=== PATIENT | male | born 1985 | race Caucasian/White ===

== ENCOUNTER 2016-07-26 19:43 | Emergency (ER) | payer BC ==
[2016-07-26 20:06] VITALS: TEMP 97.9; O2SAT 96
[2016-07-26] MEDS ORDERED: IPRATROPIUM/ALBUTEROL 3 ML DEYVIAL ONE (22:37)
[2016-07-26] MEDS ORDERED: IPRATROPIUM/ALBUTEROL 3 ML DEYVIAL IH ONE (22:45)
--- NOTE | 2016-07-26 22:50 | EDPHY ---
H & P Stated Complaint: chest pain for 1 week Time Seen by Provider: 07/26/16 22:43 HPI/ROS: CHIEF COMPLAINT: Chest pressure and tightness HISTORY OF PRESENT ILLNESS: The patient is a 30-year-old man who comes to the emergency department complaining of chest pain and tightness. He states that it feels like a weight is on his chest. He has gradually worsened over the last week. He denies shortness of breath. He denies fevers cough. He does not have any history of pulmonary cardiac disease. He denies recent travel. He does not use a hormones. He does not smoke. REVIEW OF SYSTEMS: Constitutional: denies: chills, fever, recent illness, recent injury EENTM: denies: blurred vision, double vision, nose congestion Respiratory: denies: cough, shortness of breath Cardiac: See HPI Gastrointestinal/Abdominal: denies: abdominal pain, diarrhea, nausea, vomiting, blood streaked stools Genitourinary: denies: dysuria, frequency, hematuria, pain Musculoskeletal: denies: joint pain, muscle pain Skin: denies: lesions, rash, jaundice, bruising Neurological: denies: headache, numbness, paresthesia, tingling, dizziness, weakness Hematologic/Lymphatic: denies: blood clots, easy bleeding, easy bruising Immunologic/allergic: denies: HIV/AIDS, transplant EXAM: GENERAL: Well-appearing, well-nourished and in no acute distress. HEAD: Atraumatic, normocephalic. EYES: Pupils equal round and reactive to light, extraocular movements intact, sclera anicteric, conjunctiva are normal. ENT: TMs normal, nares patent, oropharynx clear without exudates. Moist mucous membranes. NECK: Normal range of motion, supple without lymphadenopathy or JVD. LUNGS: Breath sounds clear to auscultation bilaterally and equal. No wheezes rales or rhonchi. HEART: Regular rate and rhythm without murmurs, rubs or gallops. ABDOMEN: Soft, nontender, normoactive bowel sounds. No guarding, no rebound. No masses appreciated. BACK: No CVA tenderness, no spinal tenderness, step-offs or deformities EXTREMITIES: Normal range of motion, no pitting or edema. No clubbing or cyanosis. NEUROLOGICAL: Cranial nerves II through XII grossly intact. Normal speech, normal gait. 5/5 strength, normal movement in all extremities, normal sensation PSYCH: Normal mood, normal affect. SKIN: Warm, dry, normal turgor, no visible rashes or lesions. Source: Patient Exam Limitations: No limitations - Personal History Current Tetanus/Diphtheria Vaccine: Yes Current Tetanus Diphtheria and Acellular Pertussis (TDAP): Yes - Medical/Surgical History Hx Asthma: No Hx Chronic Respiratory Disease: No Hx Diabetes: No Hx Cardiac Disease: No Hx Renal Disease: No Hx Cirrhosis: No Hx Alcoholism: No Hx HIV/AIDS: No Hx Splenectomy or Spleen Trauma: No Other PMH: R shoulder surgery, Appy - Family History Significant Family History: No pertinent family hx - Social History Smoking Status: Former smoker Alcohol Use: Sober Drug Use: None Constitutional: Initial Vital Signs Temperature (C) 36.6 C 07/26/16 20:01 Heart Rate 93 07/26/16 20:01 Respiratory Rate 18 07/26/16 20:01 Blood Pressure 107/80 07/26/16 20:01 O2 Sat (%) 96 07/26/16 20:01 O2 Delivery Mode Room Air Allergies/Adverse Reactions: No Known Allergies Allergy (Unverified 02/15/16 09:08) Home Medications: Medication Instructions Recorded AZITHROMYCIN [Z-PACK] 250 mg PO DAILY #4 tab 07/27/16 Hydrocodone/APAP 5/325 [[place] 1 - 2 tab PO Q4H PRN #14 tab 07/27/16 5/325 (RX)] Medical Decision Making - Diagnostics EKG Interpretation: An EKG obtained and was read and documented in trace view. Please see trace view for full reading and report. Sinus rhythm, no acute ischemic changes or signs of right heart strain Imaging: X-ray: chest x-ray was obtained. I viewed the images myself on the PACS system. My interpretation of the images is: Consistent with bronchitis. The radiologist interpretation is pending. ED Course/Re-evaluation: We discussed the patient's lab work and x-ray and EKG which are reassuring. I will treat him for bronchitis. He is happy with this plan and declines further workup or testing at this time. Differential Diagnosis: Partial list of the Differential diagnosis considered include but were not limited to; bronchitis, pneumonia, acute coronary disease and although unlikely based on the history and physical exam, I also considered pericarditis , endocarditis, pneumothorax. I discussed these differential diagnoses and the plan with the patient as well as the usual and expected course. The patient understands that the diagnosis is provisional and that in medicine we are not always correct and that further workup is often warranted. Usual and customary warnings were given. All of the patient's questions were answered. The patient was instructed to return to the emergency department should the symptoms at all worsen or return, otherwise to followup with the physician as we discussed. - Data Points Laboratory Results: Laboratory Results 07/26/16 23:05 07/26/16 23:05 07/26/16 07/26/16 07/26/16 23:35 23:05 23:05 WBC RBC Hgb Hct MCV MCH MCHC RDW Plt Count MPV Neut % (Auto) Lymph % (Auto) [place] % (Auto) Eos % (Auto) Baso % (Auto) Nucleat RBC Rel Count Absolute Neuts (auto) Absolute Lymphs (auto) Absolute Monos (auto) Absolute Eos (auto) Absolute Basos (auto) Absolute Nucleated RBC Immature Gran % Immature Gran # D-Dimer < 0.27 ug/mLFEU ug/mLFEU (0.00-0.50) Sodium 140 mEq/L mEq/L (134-144) Potassium 3.9 mEq/L mEq/L (3.5-5.2) Chloride 104 mEq/L mEq/L (97-110) Carbon Dioxide 24 mEq/l mEq/l (22-31) Anion Gap 12 mEq/L mEq/L (8-16) BUN 15 mg/dL mg/dL (7-23) Creatinine 0.8 mg/dL mg/dL (0.7-1.3) Estimated GFR > 60 Glucose 101 mg/dL H mg/dL (70-100) Calcium 9.6 mg/dL mg/dL (8.5-10.4) Troponin I < 0.012 ng/mL ng/mL (0-0.034) Influenza Typ A,B (DFA) NEGATIVE FOR FLU (NEGATIVE) 07/26/16 23:05 WBC 5.14 10^3/uL 10^3/uL (3.80-9.50) RBC 4.80 10^6/uL 10^6/uL (4.40-6.38) Hgb 15.2 g/dL g/dL (13.7-17.5) Hct 43.5 % % (40.0-51.0) MCV 90.6 fL fL (81.5-99.8) MCH 31.7 pg pg (27.9-34.1) MCHC 34.9 g/dL g/dL (32.4-36.7) RDW 12.0 % % (11.5-15.2) Plt Count 223 10^3/uL 10^3/uL (150-400) MPV 9.2 fL fL (8.7-11.7) Neut % (Auto) 42.6 % % (39.3-74.2) Lymph % (Auto) 41.2 % % (15.0-45.0) [place] % (Auto) 14.0 % H % (4.5-13.0) Eos % (Auto) 1.0 % % (0.6-7.6) Baso % (Auto) 1.0 % % (0.3-1.7) Nucleat RBC Rel Count 0.0 % % (0.0-0.2) Absolute Neuts (auto) 2.19 10^3/uL 10^3/uL (1.70-6.50) Absolute Lymphs (auto) 2.12 10^3/uL 10^3/uL (1.00-3.00) Absolute Monos (auto) 0.72 10^3/uL 10^3/uL (0.30-0.80) Absolute Eos (auto) 0.05 10^3/uL 10^3/uL (0.03-0.40) Absolute Basos (auto) 0.05 10^3/uL 10^3/uL (0.02-0.10) Absolute Nucleated RBC 0.00 10^3/uL 10^3/uL (0-0.01) Immature Gran % 0.2 % % (0.0-1.1) Immature Gran # 0.01 10^3/uL 10^3/uL (0.00-0.10) D-Dimer Sodium Potassium Chloride Carbon Dioxide Anion Gap BUN Creatinine Estimated GFR Glucose Calcium Troponin I Influenza Typ A,B (DFA) Medications Given: Discontinued Medications Acetaminophen/Hydrocodone Bitart ([place] 5/325mg Prepack#6) 1 btl TAKEHOME EDNOW ONE Stop: 07/27/16 01:36 Last Admin: 07/27/16 01:25 Dose: 1 btl Albuterol/Ipratropium (Duoneb) 3 ml IH EDNOW ONE Stop: 07/26/16 22:46 Last Admin: 07/26/16 22:46 Dose: 3 ml Azithromycin (Zithromax) 500 mg PO EDNOW ONE PRN Reason: Protocol Stop: 07/27/16 00:31 Last Admin: 07/27/16 01:25 Dose: 500 mg Departure - Departure Disposition: Home, Routine, Self-Care Clinical Impression: Acute bronchitis Qualifiers: Bronchitis organism: other organism Qualified Code(s): J20.8 - Acute bronchitis due to other specified organisms Condition: Fair Instructions: Acute Bronchitis (ED) Referrals: NONE *PRIMARY CARE P,. [Primary Care Provider] - As per Instructions Kerry Tuttle MD [Medical Doctor] - As per Instructions Stand Alone Forms: Work Excuse Prescriptions: Hydrocodone/APAP 5/325 [[place] 5/325 (RX)] 1 - 2 tab PO Q4H PRN #14 tab PRN Reason: Pain, Moderate AZITHROMYCIN [Z-PACK] 250 mg PO DAILY #4 tab
[2016-07-26 23:18] LABS: % IMMATURE GRANULYOCYTES 0.2 % (0.0-1.1); ABSOLUTE IMMATURE GRANULOCYTES 0.01 10^3/uL (0.00-0.10); ADD DIFF? NO; ADD MORPH? NO; ADD SCAN? YES; FRAGMENT RBC FLAG 0 (0-99); HEMATOCRIT 43.5 % (40.0-51.0); HEMOGLOBIN 15.2 g/dL (13.7-17.5); LEFT SHIFT FLG 0 (0-99); LIPEMIA HEMOLYSIS FLAG 90 (0-99); MEAN CELL HEMOGLOBIN 31.7 pg (27.9-34.1); MEAN CELL HEMOGLOBIN CONCENTR. 34.9 g/dL (32.4-36.7); MEAN CELL VOLUME 90.6 fL (81.5-99.8); MEAN PLATELET VOLUME 9.2 fL (8.7-11.7); PLATELET CLUMPS FLAG 0 (0-99); PLATELET COUNT 223 10^3/uL (150-400)
[2016-07-26 23:25] LABS: ATYPICAL LYMPHOCYTE FLAG 110 (0-99)
[2016-07-26 23:28] LABS: ANION GAP 12 mEq/L (8-16); CALCIUM 9.6 mg/dL (8.5-10.4); CARBON DIOXIDE 24 mEq/l (22-31); CHLORIDE 104 mEq/L (97-110); CREATININE 0.8 mg/dL (0.7-1.3); GLOMERULAR FILTRATION RATE > 60; GLUCOSE 101 mg/dL (70-100); POTASSIUM 3.9 mEq/L (3.5-5.2); SODIUM 140 mEq/L (134-144)
--- NOTE | 2016-07-26 23:29 | CPEKG ---
Heart Rate: 78 RR Interval: 769 QRSD Interval: 100 QT Interval: 376 QTC Interval: 429 QRS Brogan: 81 T Wave Brogan: 50 EKG Severity - ABNORMAL ECG - EKG Impression: Sinus rhythm, no acute ischemic changes or signs of right heart strain Electronically Signed By: Michael iPzano 26-Jul-2016 23:35:32
[2016-07-26 23:38] LABS: SCAN NEGATIVE
[2016-07-26 23:39] LABS: TROPONIN I < 0.012 ng/mL (0-0.034)
[2016-07-27] MEDS ORDERED: AZITHROMYCIN 250 MG TAB PO ONE (00:30)
[2016-07-27] MEDS ORDERED: HYDROCOD/APAP 5/325 PREPACK#6 BTL TAKEHOME ONE ×2 (01:19→01:35)
[2016-07-27 01:40] VITALS: BP 129/88; PULSE 82; RESP 16
== END 2016-07-27 01:39 | disposition home or self-care (01) ==
DX: J20.8 Acute bronchitis due to other specified organisms (principal); Z87.891 Personal history of nicotine dependence

== ENCOUNTER 2016-07-28 19:12 | Emergency (ER) | payer BC ==
[2016-07-28 19:30] VITALS: RESP 16; TEMP 97.5
[2016-07-28] MEDS ORDERED: METHOCARBAMOL 750 MG TAB PO ONE (20:34)
[2016-07-28] MEDS ORDERED: IBUPROFEN 600 MG TAB PO ONE (20:34)
--- NOTE | 2016-07-28 20:34 | EDPHY ---
H & P Stated Complaint: axilla pain, seen 3 days [employer] for same Time Seen by Provider: 07/28/16 19:41 HPI/ROS: CHIEF COMPLAINT: Bilateral deltoid and pectoral tenderness HISTORY OF PRESENT ILLNESS: 30-year-old male presents emergency department complaining of continued bilateral pectoral and deltoid muscle tenderness. Patient reports this is been going on for a about a week, he was seen in the emergency department for this 3 days ago and was diagnosed with bronchitis. Patient reports no cough or fevers, he had a negative D-dimer and normal labs at this time. Patient works in a [employer] in does heavy lifting occasionally. He denies numbness or tingling in his arms, no fevers or chills. Patient reports he is taking the Z-Michael that was prescribed to him and he has been taking hydrocodone which mildly helps. He is not taking any anti- inflammatories. REVIEW OF SYSTEMS: A comprehensive 10 point review of systems is otherwise negative aside from elements mentioned in the history of present illness. Source: Patient Exam Limitations: No limitations - Personal History Current Tetanus Diphtheria and Acellular Pertussis (TDAP): Yes - Medical/Surgical History Hx Asthma: No Hx Chronic Respiratory Disease: No Hx Diabetes: No Hx Cardiac Disease: No Hx Renal Disease: No Hx Cirrhosis: No Hx Alcoholism: No Hx HIV/AIDS: No Hx Splenectomy or Spleen Trauma: No Other PMH: R shoulder surgery, Appy - Social History Smoking Status: Former smoker - Physical Exam Exam: Physical Exam Gen: Alert and Oriented, NAD HEENT: PERRL, moist mucous membranes NECK: no meningismus CV: regular rate and regular rhythm PULM: CTAB, no wheezes ABDOMEN: soft, non tender to palpation, BS present BACK: No CVA tenderness NEURO: Neurologically grossly intact EXTREMITIES: normal appearing, no swelling, erythema, full range of motion of bilateral arms, mild tenderness to palpation to anterior deltoid and lateral pectoral muscle bilaterally, 2+ radial pulses, equal SKIN: no rash or break in skin on exposed skin PSYCH: answers questions appropriately. Constitutional: Initial Vital Signs Temperature (C) 36.4 C 07/28/16 19:28 Heart Rate 69 07/28/16 19:28 Respiratory Rate 16 07/28/16 19:28 Blood Pressure 144/95 H 07/28/16 19:28 O2 Sat (%) 96 07/28/16 19:28 O2 Delivery Mode Room Air Allergies/Adverse Reactions: No Known Allergies Allergy (Unverified 02/15/16 09:08) Home Medications: Medication Instructions Recorded AZITHROMYCIN [Z-PACK] 250 mg PO DAILY #4 tab 07/27/16 Hydrocodone/APAP 5/325 [[place] 1 - 2 tab PO Q4H PRN #14 tab 07/27/16 5/325 (RX)] Methocarbamol [Robaxin-750] 750 - 1,500 mg PO QID PRN #20 07/28/16 tablet Medical Decision Making ED Course/Re-evaluation: 30-year-old male presents complaining of bilateral anterior deltoid and pectoral soreness for the past week. Patient works at a [employer] and does heavy lifting. He was seen in the emergency department 3 days ago and diagnosed with a bronchitis and was placed on a Z-Michael. Patient states pain is worse moving and coughing. He has a normal physical exam aside from tenderness to palpation to anterior deltoid and pectoral muscle. He has no signs of infection, has not been taking any ibuprofen. I have recommended ibuprofen and have prescribed him Robaxin for likely muscle spasms and tightness. Patient is given a primary care doctor to establish care with. He is to return to the emergency department for worsening symptoms, new symptoms or concerns. - Data Points Medications Given: Discontinued Medications Ibuprofen (Motrin) 600 mg PO EDNOW ONE Stop: 07/28/16 20:35 Last Admin: 07/28/16 20:40 Dose: 600 mg Methocarbamol (Robaxin) 750 mg PO EDNOW ONE Stop: 07/28/16 20:35 Last Admin: 07/28/16 20:40 Dose: 750 mg Departure - Departure Disposition: Home, Routine, Self-Care Clinical Impression: Muscle spasm Condition: Good Instructions: Muscle Spasm (ED) Additional Instructions: Take 600 mg of ibuprofen every 8 hours with food for 3-5 days, take muscle relaxant as prescribed. Follow up with the primary care doctor listed for continued symptoms that are not improving, return to the emergency department for worsening symptoms, new symptoms or concerns. Ice or heat whichever feels better, gentle massage, gentle range of motion. Referrals: Meron Yost MD [Medical Doctor] - As per Instructions (Primary care doctor on-call) Prescriptions: Methocarbamol [Robaxin-750] 750 - 1,500 mg PO QID PRN #20 tablet PRN Reason: Spasms
[2016-07-28 20:49] VITALS: BP 138/81; PULSE 72; O2SAT 97
== END 2016-07-28 20:49 | disposition home or self-care (01) ==
DX: M62.838 Other muscle spasm (principal); Z87.891 Personal history of nicotine dependence

== ENCOUNTER 2017-04-22 18:52 | Emergency (ER) | payer BC ==
--- NOTE | 2017-04-22 19:16 | EDPHY ---
H & P Stated Complaint: Neck pain;sent for imaging to r/o snehal dissection - Personal History Current Tetanus Diphtheria and Acellular Pertussis (TDAP): Yes - Medical/Surgical History Hx Asthma: No Hx Chronic Respiratory Disease: No Hx Diabetes: No Hx Cardiac Disease: No Hx Renal Disease: No Hx Cirrhosis: No Hx Alcoholism: No Hx HIV/AIDS: No Hx Splenectomy or Spleen Trauma: No Other PMH: R shoulder surgery, Appy. compression fx T7 - Social History Smoking Status: Former smoker Constitutional: Initial Vital Signs Temperature (C) 36.8 C 04/22/17 18:54 Heart Rate 103 H 04/22/17 18:54 Respiratory Rate 18 04/22/17 18:54 Blood Pressure 128/73 H 04/22/17 18:54 O2 Sat (%) 98 04/22/17 18:54 O2 Delivery Mode Room Air Allergies/Adverse Reactions: No Known Allergies Allergy (Verified 04/22/17 18:54) Home Medications: Medication Instructions Recorded Diazepam [Valium 2 MG (*)] 2 mg PO 04/22/17 Medical Decision Making - Diagnostics Imaging: Discussed imaging studies w/ body recall instructor Radiologist ED Course/Re-evaluation: CHIEF COMPLAINT: "neck anxiety" HISTORY OF PRESENT ILLNESS: The patient is a 31 y/o male complaining of neck pain and lightheadedness for the last day. He has a history of a T7 compression fracture of unknown age that he discovered last month on x-ray after "tweaking" his back at work. Following that he had an intermittent "locked" neck. Today he began feeling anxious and and lightheaded and describes the sensation of "an anxiety attack on the back of my neck." He was evaluated by [facility] today at home and was told everything was normal, but referred him to the ED for a CTA of his neck to rule out a vertebral artery dissection. He denies headache, weakness, numbness, confusion, or any other symptoms. REVIEW OF SYSTEMS: A 10 point review of systems was performed and is negative with the exception of the elements mentioned in the history of present illness. PHYSICAL EXAM: General Appearance: Alert, well hydrated, appropriate, and non-toxic appearing. Head: Atraumatic without scalp tenderness or obvious injury Eyes: Pupils equal, round, reactive to light and accommodation, EOMI, no trauma , no injection. Ears: Clear bilaterally, no perforation, normal landmarks Nose: Atraumatic, no rhinorrhea, clear. Throat: Mucus membranes moist. Neck: Supple, non-tender, no lymphadenopathy. Respiratory: No retractions, no distress, no wheezes, and no accessory muscle use. Lungs are clear to auscultation bilaterally. Cardiovascular: Regular rate and rhythm, no murmurs, rubs, or gallops. Good capillary refill all extremities. Gastrointestinal: Abdomen is soft, non-tender, non-distended, no masses, no rebound, no guarding, no peritoneal signs. Musculoskeletal: Normal active ROM of all extremities, atraumatic. Neurological: Alert, appropriate, and interactive. The patient has non-focal cranial nerves, motor, sensory, and cerebellar exam. Skin: No rashes, good turgor, no nodules on palpation. PAST MEDICAL HISTORY: Remote T7 compression fracture PAST SURGICAL HISTORY: Noncontributory SOCIAL HISTORY: Lives alone DIAGNOSTICS/PROCEDURES/CRITICAL CARE TIME: Neck CTA: negative DIFFERENTIAL DIAGNOSIS: The differential diagnosis for the patient's neck pain included but was not limited to fracture, ligamentous injury, contusion, muscular strain. MEDICAL DECISION MAKING: This is an anxious 31 y/o male who is requesting a neck CTA to rule out a vertebral artery dissection due to "neck anxiety" for the last day. Normal neuro exam. Plan for neck CTA. Neck CTA is normal. Discussed results with the patient. He will be discharged with standard neck strain care and follow up instructions. Return precautions discussed. He is comfortable with plan for discharge. - Data Points Laboratory Results: 04/22/17 19:21 POC Hgb 18.4 gm/dL H gm/dL (13.7-17.5) POC Hct 54 % H % (40-51) POC Sodium 138 mEq/L mEq/L (134-144) POC Potassium 3.7 mEq/L mEq/L (3.3-5.0) POC Chloride 100 mEq/L mEq/L (97-110) POC BUN 17 mg/dL mg/dL (7-23) POC Creatinine 0.9 mg/dL mg/dL (0.7-1.3) POC Glucose 86 mg/dL mg/dL (70-100) Point of Care Test Results: 04/22/17 19:21 POC Sodium 138 POC Potassium 3.7 POC Chloride 100 POC BUN 17 POC Creatinine 0.9 POC Glucose 86 Departure - Departure Disposition: Home, Routine, Self-Care Clinical Impression: Neck pain Condition: Good Instructions: Neck Pain (ED) Additional Instructions: 1. Take 600mg ibuprofen every 6-8 hours as needed for pain. 2. Follow up with your primary care provider as needed for continued symptoms. 3. Return to the ED for worsening of condition. Referrals: [facility],. [Clinic] - As per Instructions Report Scribed for: Herb Shultz Report Scribed by: Dawna Mike Date of Report: 04/22/17 Time of Report: 19:16
[2017-04-22] MEDS ORDERED: IOPAMIDOL (ISOVUE 370) 100 ML BTL IV ONE (19:24)
[2017-04-22 20:30] VITALS: BP 122/75; PULSE 99; RESP 14; TEMP 98.4; O2SAT 93
== END 2017-04-22 20:28 | disposition home or self-care (01) ==
DX: M54.2 Cervicalgia (principal); Z87.891 Personal history of nicotine dependence
CPT/HCPCS: 82947-QW; Q9967

== ENCOUNTER → 2017-07-06 | Outpatient (CLI) | payer BC ==
[~2017-07-06] MED LIST: GADOBUTROL 10 ML VIAL IVP ONE
== END ==
LOC: FIMAGING 11:58
PROVIDERS: ATTEND Radiology Diagnostic Radiology
DX: J32.2 Chronic ethmoidal sinusitis (principal); J32.3 Chronic sphenoidal sinusitis
CPT/HCPCS: A9585